=== PATIENT | female | born 1945 | race Caucasian/White ===

== ENCOUNTER 2016-06-30 07:12 | Emergency (ER) | payer BC ==
[2016-06-30] MEDS ORDERED: 0.9 % SODIUM CHLORIDE 1,000 ML BAG IV ONE ×2 (07:24→08:37)
[2016-06-30] MEDS ORDERED: ONDANSETRON HCL IV 4 MG/2 ML VIAL IV ONE (07:24)
--- NOTE | 2016-06-30 07:30 | Emergency Department Record ---
History of Present Illness - General Chief complaint: Vomiting Stated complaint: VOMITING Time Seen by Provider: 06/30/16 07:22 Source: Patient, Family Mode of Arrival: Ambulatory Limitations: No limitations - History of Present Illness Initial comments: 70 yo female presents with nausea, vomiting and diarrhea that has been ongoing for about 2-3 days. She has had very poor appetite and little to eat or drink. She has a history of lymphoma. She had her first chemotherapy at [facility] 9 days ago. She is next scheduled July 13. No fevers. No blood in the vomiting or diarrhea. She has upper abdominal pain. She had her gall bladder and appendix removed as well as a hysterectomy. PCP is Dr Kauffman in [place] at [facility]. Her oncologist is Dr Liu at [facility]. complaint: Abdominal pain, Diarrhea, Nausea, Vomiting Onset/Timin -: Days(s) Description of Vomiting: Bilious Description of Diarrhea: Other (brown diarrhea) Location: Epigastric Radiation: None, Epigastric, Suprapubic Severity: Moderate Severity scale (1-10): 10 Quality: Constant Improves with: None Worsens with: None Associated Symptoms: Diaphoresis, Fever/chills, Weakness - Related Data Home Medications Medication Instructions Recorded Confirmed Last Taken Aspirin [Ecotrin] 325 mg PO DAILY 01/01/15 01/01/15 Unknown Cetirizine HCl [Zyrtec] 10 mg PO DAILY 01/01/15 01/01/15 Unknown Gemfibrozil [Lopid] 600 mg PO BID 01/01/15 01/01/15 Unknown Glyburide,Micronized [Glynase] 1.5 mg PO DAILY 01/01/15 01/01/15 Unknown Indapamide [Lozol] 2.5 mg PO DAILY 01/01/15 01/01/15 Unknown Levothyroxine Sodium [Synthroid] 5 mcg PO DAILY 01/01/15 01/01/15 Unknown Metformin HCl [Glucophage] 1,000 mg PO DAILY 01/01/15 01/01/15 Unknown [place]-3/Dha/Epa/Fish Oil [Fish Oil] 100 mg PO DAILY 01/01/15 01/01/15 Unknown Potassium Chloride [Klor-Con] 10 meq PO DAILY 01/01/15 01/01/15 Unknown Pravastatin Sodium [Pravachol] 20 mg PO DAILY 01/01/15 01/01/15 Unknown Prednisone [Prednisone 10Mg] 10 mg PO ASDIR 01/01/15 01/01/15 Unknown Ranitidine HCl [Zantac] 150 mg PO DAILY 01/01/15 01/01/15 Unknown Spironolactone [Aldactone] 150 mg PO DAILY 01/01/15 01/01/15 Unknown Allergies Allergy/AdvReac Type Severity Reaction Status Date / Time cephalexin monohydrate Allergy HIVES Verified 01/02/15 00:35 [From Keflex] codeine Allergy PT UNSURE Verified 01/01/15 22:09 OF REACTION Penicillins Allergy PT UNSURE Verified 01/01/15 22:09 OF REACTION propoxyphene HCl Allergy PT UNSURE Verified 01/01/15 22:09 [From Darvon] OF REACTION Sulfa (Sulfonamide Allergy PT UNSURE Verified 01/01/15 22:09 Antibiotics) OF REACTION yellow dye Allergy PT UNSURE Verified 01/01/15 22:09 OF REACTION Travel Screening - Travel/Exposure Within Last 30 Days Have you traveled within the last 30 days?: No - Travel/Exposure Within Last Year Have you traveled outside the [place] in the last year?: No - Additonal Travel Details Have you been exposed to anyone with a communicable illness?: No - Travel Symptoms Symptom Screening: None Review of Systems Constitutional: Reports: Malaise. Denies: Chills, Fever Eyes: Denies: Eye discharge, Eye pain, Photophobia, Vision change ENT: Denies: Congestion, Throat pain Respiratory: Denies: Dyspnea, Hemoptysis, Stridor, Wheezes Cardiovascular: Denies: Chest pain, Palpitations, Syncope Endocrine: Denies: Fatigue Gastrointestinal: Reports: Abdominal pain, Diarrhea, Nausea, Vomiting. Denies: Constipation, Hematemesis, Hematochezia, Melena Genitourinary: Denies: Dysuria, Frequency, Retention, Urgency Musculoskeletal: Denies: Arthralgia, Back pain, Neck pain Skin: Denies: Bruising, Change in color Neurological: Denies: Confusion, Headache, Numbness Psychiatric: Denies: Anxiety Hematological/Lymphatic: Denies: Blood Clots, Easy bleeding, Easy bruising Past Medical History - SOCIAL HISTORY Smoking Status: Never smoker - RESPIRATORY Hx Respiratory Disorders: No - CARDIOVASCULAR Hx Cardio Disorders: No - NEURO Hx Neuro Disorders: No - GI Hx GI Disorders: No - Hx Genitourinary Disorders: No - ENDOCRINE Hx Endocrine Disorders: Yes Hx Diabetes: Yes - MUSCULOSKELETAL Hx Musculoskeletal Disorders: No - PSYCH Hx Psych Problems: No - HEMATOLOGY/ONCOLOGY Hx Hematology/Oncology Disorders: No Family Medical History Any Significant Family History?: No Physical Exam - General General Appearance: Alert, Oriented x3, Cooperative, No acute distress Limitations: No limitations - Head Head exam: Normal inspection - Eye Eye exam: Normal appearance. negative: Conjunctival injection - ENT ENT exam: Normal exam, Mucous membranes moist Ear exam: Normal external inspection Nasal Exam: Normal inspection Mouth exam: Normal external inspection Teeth exam: Normal inspection Throat exam: Normal inspection - Neck Neck exam: Normal inspection, Full ROM. negative: Tenderness - Respiratory Respiratory exam: Normal lung sounds bilaterally. negative: Respiratory distress - Cardiovascular Cardiovascular Exam: Regular rate, Normal rhythm, Normal heart sounds - GI/Abdominal GI/Abdominal exam: Soft, Tenderness (She is tender across the upper abdomen). negative: Distended, Guarding, Rebound, Rigid - Rectal Rectal exam: Deferred - exam: Deferred - Extremities Extremities exam: Normal inspection, Full ROM, Normal capillary refill. negative: Tenderness - Back Back exam: Reports: Normal inspection, Full ROM. Denies: Muscle spasm, Rash noted, Tenderness - Neurological Neurological exam: Alert, Normal gait, Oriented X3 - Psychiatric Psychiatric exam: Normal affect, Normal mood. negative: Agitated, Anxious - Skin Skin exam: Dry, Intact, Normal color, Warm Course Vital Signs 06/30/16 07:13 Pulse Rate 91 H Respiratory 20 Rate Blood Pressure 140/69 Pulse Ox 99 - Reevaluation(s) Reevaluation #1: The labs were reviewed WBC count 1.6 40% N with ANC of 640 CMP with sodium 132, CR 0.9, Glucose 251, TBili 1.3, Lipase 136. 06/30/16 07:55 06/30/16 07:58 Reevaluation #2: The patient had some continued nausea and vomiting in CT Zofran provided CT completed UA is still pending 06/30/16 09:55 Reevaluation #3: The CT scan was read as mild biliary dilatation likely from gall bladder removal , duodenal diverticulum, hiatel hernia, few scattered diverticula without diverticulitis, moderate stool throughout the colon, no obstruction. 06/30/16 10:16 Reevaluation #4: The patient's results were discussed with her She remains nauseated and has vomited twice after the zofran. 06/30/16 10:24 UA Nitrite positive, LE negative, no WBC few bacteria. 06/30/16 10:44 Reevaluation #5: Still waiting for [facility] call back. Will recontact [facility] 06/30/16 12:25 Urine Culture sent 06/30/16 13:58 - Consultations Consultation #1: 11:20 Still awaiting call back from the patient's [facility] oncologist Dr Liu Consultation #2: I CONI Dodson of [facility] She accepts transfer ED to ED for further evaluation and care Medical Decision Making - Lab Data Result diagrams: 06/30/16 07:30 06/30/16 07:30 Disposition Disposition: Transfer Clinical Impression: Vomiting and diarrhea, Neutropenia, Hyponatremia UTI (urinary tract infection) Qualifiers: Urinary tract infection type: acute cystitis Hematuria presence: without hematuria Qualified Code(s): N30.00 - Acute cystitis without hematuria Disposition: Acute Care Hospital Transfer Transfer To: [facility] Reason For Transfer: Neutropenia Accepting Physician: Dr Dodson Time Discussed w/Accepting Physician: 12:52 Condition: (2) Stable Forms: Patient Portal Access Time of Disposition: 12:52
[2016-06-30] MEDS ORDERED: MORPHINE SULFATE 5 MG/ML PFS IVP ONE (07:34)
[2016-06-30 07:38] LABS: HEMATOCRIT 39.7 % (35.0-47.0); HEMOGLOBIN 13.6 gm/dl (11.6-16.0); MEAN CELL VOLUME 90.4 fl (81-97); MEAN CORPUSCULAR HGB CONC 34.3 g/dl (32-36); MEAN PLATELET VOLUME 10.2 fl (7.4-10.4); PLATELET COUNT 161 K/uL (130-400); RED BLOOD COUNT 4.39 M/uL (3.80-5.40); RED CELL DISTRIBUTION WIDTH 12.4 % (11.5-14.5); WHITE BLOOD COUNT W/O DIFF 1.6 K/uL (4.2-12.2)
[2016-06-30 07:48] LABS: PLATELET ESTIMATE NORMAL (NORMAL)
[2016-06-30 07:49] LABS: ALB/GLOB RATIO 1.6 (1.1-1.8); ALBUMIN 4.6 gm/dL (3.5-5.0); ALKALINE PHOSPHATASE 122 U/L (38-126); ALT/SGPT 26 U/L (9-52); ANION GAP 16.7 (7-16); AST/SGOT 12 U/L (14-36); BILIRUBIN,TOTAL 1.32 mg/dL (0.2-1.3); BLOOD UREA NITROGEN 21 mg/dL (7-17); CARBON DIOXIDE 23.3 mmol/L (22-30); CREATININE 0.9 mg/dL (0.52-1.04); EST GLOMERULAR FILTRATION RATE > 60 ml/min; GLUCOSE,RANDOM 251 mg/dL (70-110); LIPASE 136 U/L (23-300); TOTAL PROTEIN 7.5 gm/dL (6.3-8.2)
[2016-06-30] MEDS ORDERED: ONDANSETRON HCL IV 4 MG/2 ML VIAL IVP ONE ×2 (09:38→13:38)
[2016-06-30 10:29] LABS: URINE APPEARANCE CLEAR; URINE BILIRUBIN NEGATIVE (NEGATIVE); URINE BLOOD NEGATIVE (NEGATIVE); URINE COLOR YELLOW; URINE GLUCOSE (UA) NEGATIVE (NEGATIVE); URINE KETONE NEGATIVE (NEGATIVE); URINE LEUKOCYTE ESTERASE NEGATIVE (NEGATIVE); URINE NITRITE POSITIVE (NEGATIVE); URINE PROTEIN NEGATIVE (NEGATIVE); URINE UROBILINOGEN 0.2 E.U./dL (0.20 - 1.00)
[2016-06-30 10:39] LABS: URINE BACTERIA FEW; URINE RBC NONE SEEN (NONE SEEN); URINE WBC NONE SEEN (0-2/hpf)
[2016-06-30] MEDS ORDERED: CIPROFLOXACIN LACTATE/D5W 400 MG in DEXTROSE 1 BAG IVPB ONE (10:58)
[2016-06-30] MEDS ORDERED: LORAZEPAM 0.5 MG TABLET PO ONE (13:38)
--- NOTE | 2016-07-06 13:14 | CT SCAN REPORT ---
DATE: 06/30/2016. EXAM: CT OF THE ABDOMEN AND PELVIS. HISTORY: Vomiting. TECHNIQUE: CT of the abdomen and pelvis was performed following the intravenous administration of 100 mL of Omnipaque 300 contrast. Oral contrast was also utilized. COMPARISON: None. FINDINGS: Limited evaluation of the lung bases shows subsegmental atelectasis within each lung base. Osseus structures are grossly intact. There is a small hiatal hernia. The liver is homogeneous in attenuation without focal lesion. The patient is status post cholecystectomy. Prominence of the common bile duct at 10 mm, likely a function of post cholecystectomy state. Mild prominence of the intrahepatic bile ducts as well. The spleen, adrenal glands, pancreas, and kidneys are unremarkable. No evidence for bowel obstruction. Moderate atheromatous change. Abundant stool in the colon. Sigmoid diverticulosis without CT evidence of diverticulitis. There is a left hip prosthesis noted. The patient is status post appendectomy and hysterectomy. Moderate atheromatous change. No retroperitoneal or mesenteric adenopathy. No free air or free fluid. IMPRESSION: 1. NEGATIVE FOR ACUTE INTRA-ABDOMINAL/PELVIC PROCESS. 2. STATUS POST CHOLECYSTECTOMY. BILIARY DUCTAL DILATATION IS LIKELY A FUNCTION OF POST CHOLECYSTECTOMY STATE. 3. SMALL HIATAL HERNIA. 4. A LARGE AMOUNT OF STOOL IN THE COLON. OCCASIONAL COLONIC DIVERTICULA WITHOUT CT EVIDENCE OF DIVERTICULITIS. 5. NOT STATED PREVIOUSLY, THERE IS SUGGESTION OF A MODERATE-SIZED DUODENAL DIVERTICULA PROJECTING ALONG THE POSTERIOR ASPECT OF THE SECOND/THIRD PORTION OF THE DUODENUM. JOB NUMBER: [id number] MTDD
== END 2016-06-30 13:55 | disposition short-term general hospital (02) ==
LOC: ER 07:12
DX: N30.00 Acute cystitis without hematuria (principal); R11.2 Nausea with vomiting, unspecified; R19.7 Diarrhea, unspecified; E87.1 Hypo-osmolality and hyponatremia; D70.9 Neutropenia, unspecified; E11.9 Type 2 diabetes mellitus without complications; Z79.84 Long term (current) use of oral hypoglycemic drugs
CPT/HCPCS: 99285 ×2; 96376; 96365; 96375; 96361; 83690; 80076; 80053; 81001; 85027; 74177; Q9967; J0744; J2405; J2270; J7030

== ENCOUNTER 2017-01-26 11:15 | Emergency (ER) | payer BC ==
[2017-01-26] MEDS: METHYLPREDNISOLONE PF 125MG/VIAL IM ONE (11:47)
[2017-01-26] MEDS: DIPHENHYDRAMINE HCL 25 MG CAPSULE PO ONE (11:47)
--- NOTE | 2017-01-26 11:53 | Emergency Department Record ---
History of Present Illness - General Chief complaint: Rash Stated complaint: HIVES Time Seen by Provider: 01/26/17 11:32 Source: Patient Mode of Arrival: Ambulatory Limitations: No limitations - History of Present Illness Initial comments: pt has 4 bumps that are itchy on her back. she thought they were hives. she had a similar breakout last week and was told in urgent care that it was hives or shingles. she owns a dog. MD complaint: Insect bite/sting Onset/Timin -: Week(s) Hx Tetanus Toxoid Vaccination: Yes Year of Tetanus Vaccination: ? Location: Back Consistency: Constant Associated symptoms: Itching Treatments Prior to Arrival: Benadryl - Related Data Allergies Allergy/AdvReac Type Severity Reaction Status Date / Time cephalexin monohydrate Allergy HIVES Verified 01/02/15 00:35 [From Keflex] codeine Allergy PT UNSURE Verified 01/01/15 22:09 OF REACTION Penicillins Allergy PT UNSURE Verified 01/01/15 22:09 OF REACTION propoxyphene HCl Allergy PT UNSURE Verified 01/01/15 22:09 [From Darvon] OF REACTION Sulfa (Sulfonamide Allergy PT UNSURE Verified 01/01/15 22:09 Antibiotics) OF REACTION yellow dye Allergy PT UNSURE Verified 01/01/15 22:09 OF REACTION Travel Screening - Travel/Exposure Within Last 30 Days Have you traveled within the last 30 days?: No - Travel/Exposure Within Last Year Have you traveled outside the [place] in the last year?: No - Additonal Travel Details Have you been exposed to anyone with a communicable illness?: No - Travel Symptoms Symptom Screening: None Review of Systems Reviewed: No additional complaints except as noted below Constitutional: Reports: As per HPI. Denies: Chills, Fever, Malaise, Night sweats, Weakness, Weight change Eyes: Reports: As per HPI. Denies: Eye discharge, Eye pain, Photophobia, Vision change ENT: Reports: As per HPI. Denies: Congestion, Dental pain, Ear pain, Epistaxis , Hearing loss, Throat pain Respiratory: Reports: As per HPI. Denies: Cough, Dyspnea, Hemoptysis, Stridor, Wheezes Cardiovascular: Reports: As per HPI. Denies: Arrhythmia, Chest pain, Dyspnea on exertion, Edema, Murmurs, Orthopnea, Palpitations, Paroxysmal nocturnal dyspnea, Rheumatic Fever, Syncope Endocrine: Reports: As per HPI. Denies: Fatigue, Heat or cold intolerance, Polydipsia, Polyuria Gastrointestinal: Reports: As per HPI. Denies: Abdominal pain, Constipation, Diarrhea, Hematemesis, Hematochezia, Melena, Nausea, Vomiting Genitourinary: Reports: As per HPI. Denies: Abnormal menses, Discharge, Dyspareunia, Dysuria, Frequency, Hematuria, Incontinence, Retention, Urgency Musculoskeletal: Reports: As per HPI. Denies: Arthralgia, Back pain, Gout, Joint swelling, Myalgia, Neck pain Skin: Reports: As per HPI. Denies: Bruising, Change in color, Change in hair/ nails, Lesions, Pruritus, Rash Neurological: Reports: As per HPI. Denies: Abnormal gait, Confusion, Headache, Numbness, Paresthesias, Seizure, Tingling, Tremors, Vertigo, Weakness Psychiatric: Reports: As per HPI. Denies: Anxiety, Auditory hallucinations, Depression, Homicidal thoughts, Suicidal thoughts, Visual hallucinations Hematological/Lymphatic: Reports: As per HPI. Denies: Anemia, Blood Clots, Easy bleeding, Easy bruising, Swollen glands Past Medical History - SOCIAL HISTORY Smoking Status: Never smoker Alcohol Use: None Drug Use: None - RESPIRATORY Hx Respiratory Disorders: Yes Hx Asthma: Yes - CARDIOVASCULAR Hx Cardio Disorders: Yes Hx Hypertension: Yes - NEURO Hx Neuro Disorders: No - GI Hx GI Disorders: No - Hx Genitourinary Disorders: No - ENDOCRINE Hx Endocrine Disorders: Yes Hx Diabetes: Yes Hx Thyroid Disease: Yes - MUSCULOSKELETAL Hx Musculoskeletal Disorders: No - PSYCH Hx Psych Problems: No - HEMATOLOGY/ONCOLOGY Hx Hematology/Oncology Disorders: Yes Hx Cancer: Yes (Lymphoma) Hx Chemotherapy: Yes Family Medical History Any Significant Family History?: No Physical Exam - General General Appearance: Alert, Oriented x3, Cooperative, Mild distress - Head Head exam: Normal inspection - Eye Eye exam: Normal appearance, PERRL, EOMI Pupils: Normal accommodation - ENT ENT exam: Normal exam, Mucous membranes moist, Normal external ear exam, Normal orophraynx Ear exam: Normal external inspection. negative: External canal tenderness Nasal Exam: Normal inspection. negative: Discharge, Sinus tenderness Mouth exam: Normal external inspection, Tongue normal Teeth exam: Normal inspection. negative: Dental caries Throat exam: Normal inspection. negative: Tonsillar erythema, Tonsillar exudate - Neck Neck exam: Normal inspection, Full ROM. negative: Tenderness - Respiratory Respiratory exam: Normal lung sounds bilaterally. negative: Respiratory distress - Cardiovascular Cardiovascular Exam: Regular rate, Normal rhythm, Normal heart sounds - GI/Abdominal GI/Abdominal exam: Soft, Normal bowel sounds. negative: Tenderness - Rectal Rectal exam: Deferred - exam: Deferred - Extremities Extremities exam: Normal inspection, Full ROM, Normal capillary refill. negative: Tenderness - Back Back exam: Reports: Normal inspection, Full ROM. Denies: Muscle spasm, Rash noted, Tenderness - Neurological Neurological exam: Alert, CN II-XII intact, Normal gait, Oriented X3 - Psychiatric Psychiatric exam: Normal affect, Normal mood - Skin Skin exam: Dry, Intact, Normal color, Rash, Warm Type of lesion: Bite/sting (4 bites r shoulder) Description of rash: Erythematous, Macular, Papular Course Vital Signs 01/26/17 11:20 Temperature 97.4 F L Pulse Rate 80 Respiratory 18 Rate Blood Pressure 127/67 Pulse Ox 99 Disposition Disposition: Discharge Clinical Impression: Insect bite Qualifiers: Encounter type: initial encounter Qualified Code(s): W57.XXXA - Bitten or stung by nonvenomous insect and other nonvenomous arthropods, initial encounter Disposition: Home, Self-Care Condition: (1) Good Instructions: Insect Bite or Sting (ED) Additional Instructions: follow up with family doctor. return sooner if worse. benadryl every 6 hours as needed Forms: Patient Portal Access Quality - Quality Measures Quality Measures: N/A - Blood Pressure Screening Does Patient Have Any of the Following: No Blood Pressure Classification: Pre-Hypertensive BP Reading Systolic Measurement: 127 Diastolic Measurement: 67 Screening for High Blood Pressure: < Pre-Hypertensive BP, F/U Documented > [ G8950] Pre-Hypertensive Follow-up Interventions: Follow-up with rescreen every year.
== END 2017-01-26 12:07 | disposition home or self-care (01) ==
LOC: ER 11:15
DX: S40.261A Insect bite (nonvenomous) of right shoulder, initial encounter (principal); W57.XXXA Bitten or stung by nonvenomous insect and other nonvenomous arthropods, initial encounter; Z12.31 Encounter for screening mammogram for malignant neoplasm of breast
CPT/HCPCS: 99283 ×2; 96372; G0202; J2930

== ENCOUNTER 2017-09-01 13:17 | Emergency (ER) | payer BC ==
[2017-09-01] MEDS ORDERED: 0.9 % SODIUM CHLORIDE 1000ML 1,000 ML IV PRN (13:49)
--- NOTE | 2017-09-01 13:51 | Emergency Department Record ---
History of Present Illness - General Chief Complaint: Cough Stated Complaint: SYDNI,COUGH Time Seen by Provider: 09/01/17 13:41 Source: Patient Mode of Arrival: Ambulatory - History of Present Illness Initial Comments: patient feels SOB for one week and the cough started one week ago and dry cough and she has had chilles, and hot. Vomiting with coughing and no diarrhea . PMH asthma uses inhalers and nebulizer. Patient states not using nebulizer now and used the albuterol inhaler a couple times. PMH lymphoma and in remission for about one year oncology at [facility] Complaint: Cough Onset/Timin -: Week(s) Consistency: Constant - Related Data Previous Rx's Medication Instructions Recorded Azithromycin 250 mg PO DAILY #6 tablet 09/01/17 Allergies Allergy/AdvReac Type Severity Reaction Status Date / Time cephalexin monohydrate Allergy HIVES Verified 09/01/17 13:31 [From Keflex] codeine Allergy PT UNSURE Verified 09/01/17 13:31 OF REACTION Penicillins Allergy PT UNSURE Verified 09/01/17 13:31 OF REACTION propoxyphene HCl Allergy PT UNSURE Verified 09/01/17 13:31 [From Darvon] OF REACTION Sulfa (Sulfonamide Allergy PT UNSURE Verified 09/01/17 13:31 Antibiotics) OF REACTION yellow dye Allergy PT UNSURE Verified 09/01/17 13:31 OF REACTION Travel Screening - Travel/Exposure Within Last 30 Days Have you traveled within the last 30 days?: No Review of Systems Reviewed: No additional complaints except as noted below Constitutional: Reports: As per HPI. Denies: Chills, Fever, Malaise, Night sweats, Weakness, Weight change Eyes: Reports: As per HPI. Denies: Eye discharge, Eye pain, Photophobia, Vision change ENT: Reports: As per HPI, Congestion. Denies: Dental pain, Ear pain, Epistaxis , Hearing loss, Throat pain Respiratory: Reports: As per HPI, Cough. Denies: Dyspnea, Hemoptysis, Stridor, Wheezes Cardiovascular: Reports: As per HPI. Denies: Arrhythmia, Chest pain, Dyspnea on exertion, Edema, Murmurs, Orthopnea, Palpitations, Paroxysmal nocturnal dyspnea, Rheumatic Fever, Syncope Endocrine: Reports: As per HPI. Denies: Fatigue, Heat or cold intolerance, Polydipsia, Polyuria Gastrointestinal: Reports: As per HPI. Denies: Abdominal pain, Constipation, Diarrhea, Hematemesis, Hematochezia, Melena, Nausea, Vomiting Genitourinary: Reports: As per HPI. Denies: Abnormal menses, Discharge, Dyspareunia, Dysuria, Frequency, Hematuria, Incontinence, Retention, Urgency Musculoskeletal: Reports: As per HPI. Denies: Arthralgia, Back pain, Gout, Joint swelling, Myalgia, Neck pain Skin: Reports: As per HPI. Denies: Bruising, Change in color, Change in hair/ nails, Lesions, Pruritus, Rash Neurological: Reports: As per HPI. Denies: Abnormal gait, Confusion, Headache, Numbness, Paresthesias, Seizure, Tingling, Tremors, Vertigo, Weakness Psychiatric: Reports: As per HPI. Denies: Anxiety, Auditory hallucinations, Depression, Homicidal thoughts, Suicidal thoughts, Visual hallucinations Hematological/Lymphatic: Reports: As per HPI. Denies: Anemia, Blood Clots, Easy bleeding, Easy bruising, Swollen glands Past Medical History - SOCIAL HISTORY Smoking Status: Never smoker Alcohol Use: None Drug Use: None - RESPIRATORY Hx Respiratory Disorders: Yes Hx Asthma: Yes - CARDIOVASCULAR Hx Cardio Disorders: Yes Hx Hypertension: Yes - NEURO Hx Neuro Disorders: No - GI Hx GI Disorders: No - Hx Genitourinary Disorders: No - ENDOCRINE Hx Endocrine Disorders: Yes Hx Diabetes: Yes Hx Thyroid Disease: Yes - MUSCULOSKELETAL Hx Musculoskeletal Disorders: No - PSYCH Hx Psych Problems: No - HEMATOLOGY/ONCOLOGY Hx Hematology/Oncology Disorders: Yes Hx Cancer: Yes (Lymphoma) Hx Chemotherapy: Yes Family Medical History Any Significant Family History?: No Physical Exam - General General Appearance: Alert, Oriented x3, Cooperative, No acute distress - Head Head exam: Normal inspection - Eye Eye exam: Normal appearance, PERRL Pupils: Normal accommodation - ENT ENT exam: Normal exam, Mucous membranes moist, Normal external ear exam, Normal orophraynx, TM's normal bilaterally Ear exam: Normal external inspection. negative: External canal tenderness Nasal Exam: Normal inspection. negative: Discharge, Sinus tenderness Mouth exam: Normal external inspection, Tongue normal Teeth exam: Normal inspection. negative: Dental caries Throat exam: Normal inspection. negative: Tonsillar erythema, Tonsillar exudate - Neck Neck exam: Normal inspection, Full ROM. negative: Tenderness - Respiratory Respiratory exam: Normal lung sounds bilaterally. negative: Respiratory distress - Cardiovascular Cardiovascular Exam: Regular rate, Normal rhythm, Normal heart sounds - GI/Abdominal GI/Abdominal exam: Soft, Normal bowel sounds. negative: Tenderness - Rectal Rectal exam: Deferred - exam: Deferred - Extremities Extremities exam: Normal inspection, Full ROM, Normal capillary refill. negative: Tenderness - Back Back exam: Reports: Normal inspection, Full ROM. Denies: Muscle spasm, Rash noted, Tenderness - Neurological Neurological exam: Alert, Normal gait, Oriented X3, Reflexes normal - Psychiatric Psychiatric exam: Normal affect, Normal mood - Skin Skin exam: Dry, Intact, Normal color, Warm Course Vital Signs 09/01/17 13:29 Temperature 97.5 F L Pulse Rate 82 Respiratory 20 Rate Blood Pressure 135/78 Pulse Ox 100 - Reevaluation(s) Reevaluation #1: patien felt her glucose go down and acucheck done and it was 65 and she was given food and it went up to 81 mg/dl and she stated she hadn't eaten anything today. 09/01/17 15:46 Reevaluation #2: patient is feeling better 09/01/17 15:59 Medical Decision Making - Data Complexity MDM Data: Labs Ordered and/or Reviewed (4,500), X-Ray Ordered and/or Reviewed ( No acute infiltrate seen) - Lab Data Result diagrams: 09/01/17 14:00 09/01/17 14:00 Disposition Clinical Impression: Bronchitis Disposition: Home, Self-Care Condition: (1) Good Instructions: Acute Bronchitis (ED) Additional Instructions: follow up with family in 5 days sooner if worse use albuterol inhaler 2 puffs four times a day Prescriptions: Azithromycin 250 mg PO DAILY #6 tablet Forms: Patient Portal Access Time of Disposition: 15:59 Quality - Quality Measures Quality Measures: N/A - Blood Pressure Screening Does Patient Have Any of the Following: No Blood Pressure Classification: Pre-Hypertensive BP Reading Systolic Measurement: 135 Diastolic Measurement: 78 Screening for High Blood Pressure: < Pre-Hypertensive BP, F/U Documented > [ G8950] Pre-Hypertensive Follow-up Interventions: Referral to alternative/primary care provider.
[2017-09-01 14:12] LABS: BASO % 0.2 % (0-6); EOS % 1.3 % (0-6); GRAN % 57.7 % (47-80); HEMOGLOBIN 13.2 gm/dl (11.6-16.0); MEAN CORPUSCULAR HEMOGLOBIN 34.4 pg (27-33); MEAN CORPUSCULAR HGB CONC 34.7 g/dl (32-36); MEAN PLATELET VOLUME 9.2 fl (7.4-10.4); MONO % 9.8 % (0-9); PLATELET COUNT 247 K/uL (130-400); RED BLOOD COUNT 3.84 M/uL (3.80-5.40); RED CELL DISTRIBUTION WIDTH 13.3 % (11.5-14.5); WHITE BLOOD COUNT W/O DIFF 4.5 K/uL (4.2-12.2)
[2017-09-01 14:22] LABS: INFLUENZA A NEGATIVE (NEGATIVE); INFLUENZA B NEGATIVE (NEGATIVE)
[2017-09-01 14:23] LABS: BLOOD UREA NITROGEN 33 mg/dL (8-23); CREATININE 0.8 mg/dL (0.5-0.9); EST GLOMERULAR FILTRATION RATE > 60 mL/min
[2017-09-01 14:26] LABS: GLUCOSE,RANDOM 96 mg/dL (74-109)
--- NOTE | 2017-09-03 08:44 | RADIOLOGY REPORT ---
EXAM: CHEST, TWO VIEWS HISTORY: SHORTNESS OF BREATH, DIFFICULTY IN BREATHING, COUGHING. TECHNIQUE: PA and lateral views of the chest were obtained. Comparison: None. FINDINGS: Postop changes right shoulder. The heart size is normal. No acute infiltrate is seen. Somewhat exaggerated kyphosis with prominent spurring in the spine. IMPRESSION: 1. KYPHOSIS WITH PROMINENT SPURRING IN THE SPINE. 2. POSTOP CHANGES RIGHT SHOULDER. 3. NO ACUTE INFILTRATE EVIDENT. JOB NUMBER: [id number] MTDD
== END 2017-09-01 16:12 | disposition home or self-care (01) ==
LOC: ER 13:17
DX: J20.9 Acute bronchitis, unspecified (principal); E11.9 Type 2 diabetes mellitus without complications; Z79.84 Long term (current) use of oral hypoglycemic drugs; I10 Essential (primary) hypertension
CPT/HCPCS: 36416; 71046; 80048; 82948; 85025; 87400; 99283; 99284